=== PATIENT | male | born 1985 | race Caucasian/White ===

== ENCOUNTER 2017-01-21 17:37 | Emergency (ER) | payer MEDICAID, OTHER ==
[~2017-01-21] VITALS: Ht 172.7 cm; Wt 83.0 kg
[2017-01-21 17:39] VITALS: Ht 172.7 cm; Wt 83.0 kg
[2017-01-21] MEDS ORDERED: ACETAMINOPHEN 500 MG TAB PO STA (18:15)
[2017-01-21] MEDS ORDERED: SOD CHLORIDE 0.9% 1,000 ML IV STA (18:15)
--- NOTE | 2017-01-21 19:16 | RADRPT ---
PROCEDURE: US Scrotum. CLINICAL INDICATION: Abdominal Pain, left scrotal pain TECHNIQUE: Multiple sonographic images of the scrotal region were obtained utilizing a linear arra y transducer with grayscale and color-flow and a Doppler imaging. The images were reviewed on a high -resolution PACS workstation. COMPARISON: No prior studies are available for comparison. FINDINGS: Right Testis: Size (cm): 4.0 x 2.0 x 2.9 Echotexture: Homogeneous. Hydrocele/Mass: There is a mild to moderate hydrocele. Vascularity: Normal arterial inflow and venous outflow. Epididymis: No significant abnormalities. Left Testis: Size (cm): 3.0 x 2.6 x 2.9 Echotexture: Small hypoechoic foci are noted eccentrically within the left testicle inferi otto. Hydrocele/Mass: There is a mild to moderate hydrocele. Vascularity: There is asymmetrically increased blood flow to the left testis. Epididymis: The left epididymis is enlarged, heterogeneous, and markedly hypervascular. IMPRESSION: Enlarged, heterogeneous, and markedly hypervascular epididymis as well as heterogeneity and asymmetr ically increased vascularity of the left testicle, as above. Findings suggest left-sided epididymo- orchitis. Mild to moderate bilateral hydroceles. RPTAT: EE Physician Juanito Date Time Electronically viewed and signed by Physician Juanito on 01/21/2017 19:15 /
--- NOTE | 2017-01-21 19:16 | RADRPT ---
PROCEDURE: XR Chest. CLINICAL INDICATION: sob TECHNIQUE: Single frontal view of the chest was obtained. COMPARISON: None. FINDINGS: The heart and mediastinum are within normal limits. The lungs are clear. There is no significant pleural effusion or pneumothorax. IMPRESSION: No acute disease. RPTAT: EE Physician Juanito Date Time Electronically viewed and signed by Stone Rodriguez Physician on 01/21/2017 19:16 RA/
[2017-01-21 19:32] LABS: ADD SCAN DIFF NO
[2017-01-21 19:40] LABS: BASOPHILS % 0.2 % (0.0-2.0); HEMATOCRIT 45.3 % (42.0-52.0); HEMOGLOBIN 14.9 g/dl (14.0-18.0); LYMPHOCYTES % 10.4 % (15.0-51.0); MEAN CORPUSCULAR HEMOGLOBIN 29.4 pg (29.0-33.0); MEAN CORPUSCULAR HGB CONC 32.9 g/dl (32.0-37.0); MEAN CORPUSCULAR VOLUME 89.3 fl (82.0-101.0); MEAN PLATELET VOLUME 9.8 fl (7.4-10.4); MONOCYTE # 0.8 10^3/ul (0.3-0.9); NEUTROPHIL # 7.5 10^3/ul (1.6-7.5); NEUTROPHILS % 80.3 % (39.0-77.0); PLATELET COUNT 279 10^3/UL (140-415); RED BLOOD COUNT 5.07 10^6/ul (4.70-6.10); RED CELL DISTRIBUTION WIDTH 12.4 % (11.5-14.5); WHITE BLOOD COUNT 9.3 10^3/ul (4.8-10.8)
[2017-01-21 20:03] LABS: ALBUMIN 4.4 g/dl (3.3-4.9)
[2017-01-21 20:04] LABS: POTASSIUM 4.3 mmol/L (3.5-5.1)
[2017-01-21 20:06] LABS: BILIRUBIN,INDIRECT 0.2 mg/dl (0-1.1); BILIRUBIN,TOTAL 0.2 mg/dl (0.2-1.3); CREATININE 0.9 mg/dl (0.61-1.24)
[2017-01-21 20:07] LABS: CALCIUM 9.6 mg/dl (8.4-10.2); TOTAL PROTEIN 8.8 g/dl (6.1-8.1)
[2017-01-21 20:09] LABS: ADD UMIC YES; URINE BILIRUBIN (Dip) NEGATIVE (NEGATIVE); URINE BLOOD (Dip) TRACE (NEGATIVE); URINE COLOR YELLOW (YELLOW); URINE GLUCOSE (Dip) NEGATIVE (NEGATIVE); URINE KETONES (Dip) NEGATIVE (NEGATIVE); URINE LEUKOCYTE ESTERASE (Dip) 1+ (NEGATIVE); URINE NITRITE (Dip) NEGATIVE (NEGATIVE); URINE TOTAL PROTEIN (Dip) 1+ (NEGATIVE); URINE UROBILINOGEN (Dip) 1.0 E.U./dL (0.1-1.0)
[2017-01-21 20:25] LABS: SQUAMOUS EPITHELIAL CELL,UR RARE; URINE RBCS 0-2 /HPF (0)
[2017-01-21] MEDS ORDERED: ONDANSETRON 4 MG INJ IV STA (20:41)
[2017-01-21] MEDS ORDERED: CEFTRIAXONE 1 GM/50 ML (PMX) 50 ML IVPB STA (20:41)
[2017-01-21 20:45] VITALS: TEMP 98
[2017-01-21] MEDS ORDERED: morphine 10 MG INJ IV ONE (21:00)
[2017-01-21] MEDS ORDERED: AZITHROMYCIN 250 MG TAB PO STA (21:32)
[2017-01-21] MEDS ORDERED: CIPROFLOXACIN 500 MG TAB PO STA (21:56)
[2017-01-21] MEDS ORDERED: CIPR500T4 PO (21:57)
[2017-01-21] MEDS ORDERED: HYDR-906 PO (21:59)
--- NOTE | 2017-01-21 23:39 | ERD ---
ER Documentation Chief Complaint Date/Time DATE: 01/21/17 TIME: 23:34 Chief Complaint TESTICULAR PAIN X 3 DAYS. ALSO C/O LEON. HPI This is a 31-year-old male presenting to the emergency department complaining of testicular pain and swelling for 1 week. Patient states that the pain was more severe last week, he states the pain went from 10/10 to 5/10, however swelling has remained constant. Patient states that he has been having chills and fevers today. Patient admits to being sexually active with condoms with one partner. He denies any penile lesions or discharge. He states that he has not taken any medications today. ROS All systems reviewed and are negative except as per history of present illness. Medications Home Meds Active Scripts Hydrocodone/Acetaminophen ([place] 5-325 Tablet) 1 Each Tablet, 1 TAB PO Q6H Y for PAIN, #20 TAB Prov:HYUN FORTE PA-C 01/21/17 Ciprofloxacin Hcl* (Ciprofloxacin Hcl*) 500 Mg Tablet, 500 MG PO BID for 10 Days , TAB Prov:HYUN FORTE PA-C 01/21/17 Allergies Allergies: Coded Allergies: No Known Allergy (Unverified , 01/21/17) PMhx/Soc Medical and Surgical Hx: pt denies Medical Hx, pt denies Surgical Hx History of Surgery: No Anesthesia Reaction: No Hx Neurological Disorder: No Hx Respiratory Disorders: No Hx Cardiac Disorders: No Hx Psychiatric Problems: No Hx Miscellaneous Medical Probl: No Hx Alcohol Use: No Hx Substance Use: No Hx Tobacco Use: No Smoking Status: Never smoker Physical Exam Vitals Vital Signs Date Time Temp Pulse Resp B/P Pulse Ox O2 Delivery O2 Flow Rate FiO2 01/21/17 20:45 98.0 01/21/17 17:39 101.2 127 20 134/76 97 Physical Exam General: well-developed/well-nourished, in no apparent distress, non-toxic appearing HENT: NC/AT, bilateral tympanic membrane is normal with good cone of light, nares patent, oropharynx clear without exudates Eyes: Conjunctiva normal, PERRLA, EOMI Neck: Supple, no lymphadenopathy Pulm: CTA bilaterally, no rales, rhonchi, or wheezing heard CV: Normal S1S2, RRR, good capillary refill GI: Soft, non-distended, normal bowel sounds, non-tender : no penile discharge or lesions, Testicular swelling, left greater than right with warmth Back: No midline tenderness, no masses, No CVAT Ext: No clubbing, cyanosis, or edema Neuro: Alert and Orientated, CN II-IIX intact, gait normal Skin: Intact, normal turgor Psych: Normal mood and mentation Result Diagram: 01/21/17191201/21/171912 Results 24 hrs Laboratory Tests Test 01/21/17 19:13 01/21/17 20:15 White Blood Count 9.310^3/ul Red Blood Count 5.0710^6/ul Hemoglobin 14.9g/dl Hematocrit 45.3% Mean Corpuscular Volume 89.3fl Mean Corpuscular Hemoglobin 29.4pg Mean Corpuscular Hemoglobin Concent 32.9g/dl Red Cell Distribution Width 12.4% Platelet Count 24084^3/UL Mean Platelet Volume 9.8fl Neutrophils % 80.3% Lymphocytes % 10.4% Monocytes % 8.0% Eosinophils % 0.0% Basophils % 0.2% Nucleated Red Blood Cells % 0.0/100WBC Neutrophils # 7.510^3/ul Lymphocytes # 1.010^3/ul Monocytes # 0.810^3/ul Eosinophils # 0.010^3/ul Basophils # 0.010^3/ul Nucleated Red Blood Cells # 0.010^3/ul Urine Color YELLOW Urine Clarity CLEAR Urine pH 8.0 Urine Specific [place] 1.015 Urine Ketones NEGATIVE Urine Nitrite NEGATIVE Urine Bilirubin NEGATIVE Urine Urobilinogen 1.0 E.U./dL Urine Leukocyte Esterase 1+ Urine Microscopic RBC 0-2/HPF Urine Microscopic WBC 5-10/HPF Urine Squamous Epithelial Cells RARE Urine Hemoglobin TRACE Urine Glucose NEGATIVE% Urine Total Protein 1+ Sodium Level 141mmol/L Potassium Level 4.3mmol/L Chloride Level 100mmol/L Carbon Dioxide Level 26mmol/L Anion Gap 19 Blood Urea Nitrogen 12mg/dl Creatinine 0.90mg/dl Glucose Level 125mg/dl Calcium Level 9.6mg/dl Total Bilirubin 0.2mg/dl Direct Bilirubin 0.00mg/dl Indirect Bilirubin 0.2mg/dl Aspartate Amino Transf (AST/SGOT) 28IU/L Alanine Aminotransferase (ALT/SGPT) 29IU/L Alkaline Phosphatase 105IU/L Total Protein 8.8g/dl Albumin 4.4g/dl Globulin 4.40g/dl Albumin/Globulin Ratio 1.00 Lactic Acid Level 1.2mmol/L Current Medications Medications (Trade) Dose Ordered Sig/Sivlana Route PRN Reason Start Time Stop Time Status Last Admin Dose Admin Sodium Chloride (NS) 1,000 ml @ 1,000 mls/hr Q1H STAT IV 01/21/17 18:15 01/21/17 19:14 DC 01/21/17 18:15 Acetaminophen 1000 mg 1,000 mg ONCE STAT PO 01/21/17 18:15 01/21/17 18:18 DC 01/21/17 19:31 Ceftriaxone Sodium (Rocephin) 50 ml @ 100 mls/hr ONCE STAT IVPB 01/21/17 20:41 01/21/17 21:10 DC 01/21/17 20:52 Morphine Sulfate (morphine) 6 mg ONCE ONCE IV 01/21/17 21:00 01/21/17 21:01 DC 01/21/17 20:53 Ondansetron HCl (Zofran Inj) 4 mg ONCE STAT IV 01/21/17 20:41 01/21/17 20:43 DC 01/21/17 20:52 Azithromycin (Zithromax) 1,000 mg ONCE STAT PO 01/21/17 21:32 01/21/17 21:34 DC 01/21/17 21:50 Ciprofloxacin (Cipro) 500 mg ONCE STAT PO 01/21/17 21:56 01/21/17 21:57 DC 01/21/17 22:04 Procedures/MDM This is a 31-year-old male presenting to the emergency department with testicular pain and swelling for the past week due to left-sided epididymo- orchitis. Initially, patient was febrile with tachycardia. IV access was established. Patient was given 1 L fluids, Tylenol morphine and Zofran. Patient pain and vitals have stabilized. A testicular ultrasound was done and showed left-sided epididymo-orchitis. Lab work was drawn. CBC did not show any evidence of leukocytosis or anemia. CMP did not show any evidence of renal, liver, or electrolyte abnormalities. Lipase was normal. Lactate within normal limits. UA showed leukocyte esterase, urine culture and chronically culture was sent out. In the ED patient was given 1 g ceftriaxone and 1000 mg of azithromycin. I have consulted the urologist pet adoption counselor Dr. Benitez Salas regarding this patient and she suggested patient to be placed on Cipro for the next 7 days, NSAIDs, scrotal elevation and ice until he is able to follow-up with a urologist outpatient on Thursday. Patient is suitable for being discharged home with strict precautions to return to the emergency room for any worsening signs or symptoms. Patient understands and agrees with this plan Prescriptions given: cipro 500mg BID x 7-10 days, ibuprofen 800mg Q6 hours Testicular ultrasound: Enlarged, heterogeneous, and markedly hypervascular epididymis as well as heterogeneity and asymmetrically increased vascularity of the left testicle, as above. Findings suggest left-sided epididymo-orchitis. Mild to moderate bilateral hydroceles. Departure Diagnosis: Primary Impression: Epididymo-orchitis, acute Condition: Fair Patient Instructions: Treating Epididymitis and Orchitis, What Are Epididymitis and Orchitis?, Epididymitis Referrals: BENITEZ SALAS MD [facility] YOU HAVE RECEIVED A MEDICAL SCREENING EXAM AND THE RESULTS INDICATE THAT YOU DO NOT HAVE A CONDITION THAT REQUIRES URGENT TREATMENT IN THE EMERGENCY DEPARTMENT. FURTHER EVALUATION AND TREATMENT OF YOUR CONDITION CAN WAIT UNTIL YOU ARE SEEN IN YOUR DOCTORS OFFICE WITHIN THE NEXT 1-2 DAYS. IT IS YOUR RESPONSIBILITY TO MAKE AN APPOINTMENT FOR FOLOW-UP CARE. IF YOU HAVE A PRIMARY DOCTOR --you should call your primary doctor and schedule an appointment IF YOU DO NOT HAVE A PRIMARY DOCTOR YOU CAN CALL OUR PHYSICIAN REFERRAL HOTLINE AT IF YOU CAN NOT AFFORD TO SEE A PHYSICIAN YOU CAN CHOSE FROM THE FOLLOWING [facility] CL[facility] [address] [facility]. [facility] [address] [facility]. [facility] [address] [facility]. [facility] [address] [facility]. [facility] [address] [facility]. [facility]. [address] Additional Instructions: FOLLOW UP WITH YOUR PRIMARY CARE PHYSICIAN TOMORROW.Return to this facility if you are not improving as expected. SPECIALIST: YOU HAVE A MEDICAL CONDITION WHICH REQUIRES YOU TO SEE A SPECIALIST WITHIN THE NEXT 1-2 DAYS. PLEASE FOLLOW UP WITH YOUR PRIMARY PHYSICIAN FOR REFFERAL.IF YOU DO NOT HAVE A PRIMARY CARE PHYSICIAN AND/OR YOU CAN NOT AFFORD TO SEE A PHYSICIAN THE FOLLOWING RESOURCES HAVE BEEN SUPPLIED TO YOU. IT IS YOUR RESPONSIBILITY TO BE SEEN BY THE SPECIALIST Take all medicines as directed. Return to this facility if you are not improving as expected. HYUN FORTE PA-C January 21, 2017 23:39
== END 2017-01-21 22:49 | disposition home or self-care (01) ==
LOC: FTE 17:37
DX: N45.3 Epididymo-orchitis (principal); R06.02 Shortness of breath
CPT/HCPCS: 36415; 71010; 76870; 80053; 81001; 83605; 85025; 87040; 87086; 87591; 96374; 96375; J0696; J2270; J2405; J7030; Z7502; Z7610; 81003

== ENCOUNTER 2017-08-27 17:04 | Emergency (ER) | END 2017-08-27 20:10 | disposition home or self-care (01) ==

== ENCOUNTER 2017-08-30 17:59 | Emergency (ER) | payer OTHER ==
[~2017-08-30] VITALS: Ht 172.7 cm; Wt 80.3 kg
[~2017-08-30 17:59] MED LIST: ACET325T33 PO; AZIT250T94 PO; CIPR500T4 PO; HYDR-906 PO; IBUP400T22 PO
[2017-08-30 18:00] VITALS: Ht 172.7 cm; Wt 80.3 kg
[2017-08-30] MEDS ORDERED: SOD CHLORIDE 0.9% 1,000 ML IV STA (18:38)
[2017-08-30] MEDS ORDERED: CEFTRIAXONE 1 GM/50 ML (PMX) 50 ML IVPB STA (18:38)
--- NOTE | 2017-08-30 19:10 | RADRPT ---
PROCEDURE: CHEST X-RAY CLINICAL INDICATION: Shortness of breath TECHNIQUE: One-view COMPARISON: 08/27/2017 FINDINGS: Heart size and pulmonary vascularity appears unremarkable. Large lingular and lower lobe infiltrate is seen without improvement. Small left pleural effusion cannot be excluded. No pneumothorax noted. IMPRESSION: No change lingular and left lower lobe infiltrate RPTAT: AAOO Physician Kay Date Time Electronically viewed and signed by Sherin Pena Physician on 08/30/2017 19:09 MB/
[2017-08-30 19:21] LABS: BASOPHIL # 0.1 10^3/ul (0.0-0.1); BASOPHILS % 0.8 % (0.0-2.0); EOSINOPHILS # 0.1 10^3/ul (0.0-0.5); EOSINOPHILS % 0.5 % (0.0-7.0); HEMOGLOBIN 13.8 g/dl (14.0-18.0); LYMPHOCYTES # 1.6 10^3/ul (0.8-2.9); MEAN CORPUSCULAR HEMOGLOBIN 28.3 pg (29.0-33.0); MEAN CORPUSCULAR HGB CONC 32.1 g/dl (32.0-37.0); MEAN CORPUSCULAR VOLUME 88.3 fl (82.0-101.0); MONOCYTE # 1.1 10^3/ul (0.3-0.9); MONOCYTES % 9.3 % (0.0-11.0); NEUTROPHIL # 9.1 10^3/ul (1.6-7.5); NEUTROPHILS % 75.2 % (39.0-77.0); PLATELET COUNT 458 10^3/UL (140-415); RED BLOOD COUNT 4.87 10^6/ul (4.70-6.10); RED CELL DISTRIBUTION WIDTH 12.2 % (11.5-14.5); WHITE BLOOD COUNT 12.1 10^3/ul (4.8-10.8)
--- NOTE | 2017-08-30 19:29 | ERD ---
ER Documentation Chief Complaint Chief Complaint rash on neck sob and cough HPI This is a 31-year-old male presenting to emergency department for cough, shortness of breath and rash to left neck. Patient was seen here 3 days ago and was diagnosed with pneumonia. Patient was given Rocephin 1 g IM while in the ED 3 days ago and was given prescription for azithromycin. Patient states he did not start on the medication prescribed. Patient continues to have dry, nonproductive cough and intermittent shortness of breath. Patient states for the last 3 days he noticed a nonpruritic and nonpainful rash to the left side of his neck. Patient states he noticed it in the mirror. Rash is spreading. Has lesions to left forearm and head. Patient states he did not have varicella as a child. Patient denies fevers or chills. No wheezing. ROS All systems reviewed and are negative except as per history of present illness. Medications Home Meds Active Scripts Azithromycin* (Zithromax*) 250 Mg Tablet, 250 MG PO .ZPACK DIRECTED, #6 TAB TAKE 500 MG (2 TABS) THE FIRST DAY THEN 250 MG (1 TAB) DAYS 2-5 Prov:JORDANA SALDAÑA NP 08/30/17 Acyclovir* (Zovirax*) 800 Mg Tablet, 800 MG PO 5 TIMES DAILY for 7 Days, TAB Prov:JORDANA SALDAÑA NP 08/30/17 Acetaminophen* (Tylenol*) 325 Mg Tablet, 1 TAB PO Q6 Y for PAIN AND OR ELEVATED TEMP, #20 TAB Prov:JORDANA SALDAÑA NP 08/27/17 Ibuprofen* (Motrin*) 400 Mg Tab, 400 MG PO Q6, #30 TAB Prov:JORDANA SALDAÑA NP 08/27/17 Azithromycin* (Zithromax*) 250 Mg Tablet, 250 MG PO .ZPACK DIRECTED, #6 TAB TAKE 500 MG (2 TABS) THE FIRST DAY THEN 250 MG (1 TAB) DAYS 2-5 Prov:JORDANA SALDAÑA NP 08/27/17 Hydrocodone/Acetaminophen ([place] 5-325 Tablet) 1 Each Tablet, 1 TAB PO Q6H Y for PAIN, #20 TAB Prov:HYUN FORTE PA-C 01/21/17 Ciprofloxacin Hcl* (Ciprofloxacin Hcl*) 500 Mg Tablet, 500 MG PO BID for 10 Days , TAB Prov:ANITHAHYUN Conti Neil TRUJILLO 01/21/17 Allergies Allergies: Coded Allergies: No Known Allergy (Unverified , 08/27/17) PMhx/Soc Medical and Surgical Hx: pt denies Medical Hx, pt denies Surgical Hx History of Surgery: No Anesthesia Reaction: No Hx Neurological Disorder: No Hx Respiratory Disorders: No Hx Cardiac Disorders: No Hx Psychiatric Problems: No Hx Miscellaneous Medical Probl: No Hx Alcohol Use: Yes Hx Substance Use: Yes (marijuana) Hx Tobacco Use: Yes Smoking Status: Current some day smoker Physical Exam Vitals Vital Signs Date Time Temp Pulse Resp B/P Pulse Ox O2 Delivery O2 Flow Rate FiO2 08/30/17 22:36 98.3 97 18 109/70 97 Room Air 08/30/17 21:40 101.7 08/30/17 20:50 102.9 119 31 132/74 95 Room Air 08/30/17 19:45 116 26 94 21 08/30/17 18:00 99.0 119 18 128/80 95 Physical Exam Const: NAD, alert Head: Atraumatic Eyes: Normal Conjunctiva ENT: Normal External Ears, Nose and Mouth. Neck: Full range of motion..~ No meningismus. Resp: Diminished to auscultation bilaterally. Labored breathing. No stridor or wheezing. Patient is talking in complete sentences. Cardio: Regular rate and rhythm, no murmurs Abd: Soft, non tender, non distended. Normal bowel sounds Skin: Erythematous vesicular rash to left side of neck. There are a few erythematous vesicular lesions to left scalp and left forearm. No drainage or crusting. No warmth. Back: No midline or flank tenderness Ext: No cyanosis, or edema Neur: Awake and alert Psych: Normal Mood and Affect Result Diagram: 08/30/17190908/30/171909 Results 24 hrs Laboratory Tests Test 08/30/17 18:55 08/30/17 19:05 08/30/17 19:10 08/30/17 21:10 Lactic Acid Level 1.3mmol/L 1.0mmol/L Urine Color YELLOW Urine Clarity CLEAR Urine pH 7.0 Urine Specific [place] 1.020 Urine Ketones NEGATIVEmg/dL Urine Nitrite NEGATIVEmg/dL Urine Bilirubin NEGATIVEmg/dL Urine Urobilinogen 1+mg/dL Urine Leukocyte Esterase NEGATIVELeu/ul Urine Microscopic RBC 41/HPF Urine Microscopic WBC 4/HPF Urine Bacteria FEW/HPF Urine Mucus MODERATE/HPF Urine Hemoglobin 2+mg/dL Urine Glucose NEGATIVEmg/dL Urine Total Protein 1+mg/dl White Blood Count 12.110^3/ul Red Blood Count 4.8710^6/ul Hemoglobin 13.8g/dl Hematocrit 43.0% Mean Corpuscular Volume 88.3fl Mean Corpuscular Hemoglobin 28.3pg Mean Corpuscular Hemoglobin Concent 32.1g/dl Red Cell Distribution Width 12.2% Platelet Count 34763^3/UL Mean Platelet Volume 9.0fl Neutrophils % 75.2% Lymphocytes % 13.0% Monocytes % 9.3% Eosinophils % 0.5% Basophils % 0.8% Nucleated Red Blood Cells % 0.0/100WBC Neutrophils # 9.110^3/ul Lymphocytes # 1.610^3/ul Monocytes # 1.110^3/ul Eosinophils # 0.110^3/ul Basophils # 0.110^3/ul Nucleated Red Blood Cells # 0.010^3/ul Prothrombin Time 15.3Sec Prothrombin Time Ratio 1.2 INR International Normalized Ratio 1.19 Activated Partial Thromboplast Time 71.4Sec Sodium Level 138mmol/L Potassium Level 4.1mmol/L Chloride Level 99mmol/L Carbon Dioxide Level 27mmol/L Anion Gap 16 Blood Urea Nitrogen 9mg/dl Creatinine 1.06mg/dl Glucose Level 118mg/dl Calcium Level 9.2mg/dl Total Bilirubin 0.3mg/dl Direct Bilirubin 0.00mg/dl Indirect Bilirubin 0.3mg/dl Aspartate Amino Transf (AST/SGOT) 50IU/L Alanine Aminotransferase (ALT/SGPT) 62IU/L Alkaline Phosphatase 174IU/L Troponin I 0.018ng/ml Total Protein 8.7g/dl Albumin 3.7g/dl Globulin 5.00g/dl Albumin/Globulin Ratio 0.74 Current Medications Medications (Trade) Dose Ordered Sig/Silvana Route PRN Reason Start Time Stop Time Status Last Admin Dose Admin Sodium Chloride 1,000 ml @ 1,000 mls/hr Q1H STAT IV 08/30/17 18:38 08/30/17 19:37 DC 08/30/17 19:00 Ceftriaxone Sodium (Rocephin) 50 ml @ 100 mls/hr ONCE STAT IVPB 08/30/17 18:38 08/30/17 19:07 DC 08/30/17 19:00 Levalbuterol (Xopenex Neb) 1.25 mg ONCE ONCE HHN 08/30/17 19:30 08/30/17 19:31 DC 08/30/17 19:45 Acetaminophen (Tylenol Tab) 1,000 mg ONCE STAT PO 08/30/17 20:53 08/30/17 20:59 DC 08/30/17 21:00 Acetaminophen (Tylenol Tab) 1,000 mg ONCE STAT PO 08/30/17 20:54 08/30/17 20:58 DC Acetaminophen (Tylenol Tab) 500 mg STK-MED ONCE .ROUTE 08/30/17 20:56 08/30/17 20:57 DC Procedures/MDM Patient: LOTUS SNOWDEN : 1985 Age: 31 Sex: M MR #: [id number] DOS: 08/30/17 1838 Ordering MD: JORDANA MURILLO NP Location: [facility] Room/Bed: PROCEDURE: CHEST X-RAY CLINICAL INDICATION: Shortness of breath TECHNIQUE: One-view COMPARISON: 08/27/2017 FINDINGS: Heart size and pulmonary vascularity appears unremarkable. Large lingular and lower lobe infiltrate is seen without improvement. Small left pleural effusion cannot be excluded. No pneumothorax noted. IMPRESSION: No change lingular and left lower lobe infiltrate MDM: This is a 31-year-old male presenting to the emergency department for cough , shortness of breath and rash 3 days. Patient was seen here previously 3 days ago and was diagnosed with pneumonia. Patient was treated in the ER and then sent home with prescription for azithromycin. Patient states he did not start this medication and has been only taking ibuprofen at home. Dr. Alex Kc consulted regarding this patient. Dr. Stinson also examined patient. Labs, urine and repeat chest x-ray ordered. IV access obtained and patient given 1 g Rocephin and 1 L IV fluid bolus of normal saline. Patient given a nebulizer treatment of Xopenex. CBC shows no significant anemia or infection. WBC is downtrending. CXR shows no change regular and left lower lobe infiltrate. Lactic acid is 1.3 and repeat lactic acid is 1.0. PT 15.3, INR 1.19 and PTT 71.4. Urine is negative for infection. Upon reassessment of patient, states he is feeling much better. Discussed case with Dr. Alex Kc and we agree that patient is appropriate for outpatient management. Patient diagnosis is pneumonia and rash. Patient likely has varicella. Patient is appropriate for outpatient management will be given prescription for azithromycin and acyclovir. Return to ED for any high fever, chest pain, difficulty breathing, shortness breath, wheezing, vomiting, diarrhea, abdominal pain or any new or worsening symptoms. Patient verbalizes understanding. All questions answered at discharge. Disclaimer: Inadvertent spelling and grammatical errors are likely due to EHR/ dictation software use and do not reflect on the overall quality of patient care. Also, please note that the electronic time recorded on this note does not necessarily reflect the actual time of the patient encounter. Departure Diagnosis: Primary Impression: Pneumonia Aspiration pneumonia type: unspecified Laterality: left Lung location: lower lobe of lung Additional Impression: Rash and other nonspecific skin eruption Condition: Stable JORDANA SALDAÑA NP Aug 30, 2017 19:29
[2017-08-30] MEDS ORDERED: LEVALBUTEROL (NEB) 1.25 MG/0.5 ML AMP HHN ONE (19:30)
[2017-08-30 19:37] LABS: ADD UMIC YES; UR ASCORBIC ACID NEGATIVE (NEGATIVE); UR BACTERIA FEW /HPF (NONE SEEN); UR BILIRUBIN (Dip) NEGATIVE (NEGATIVE); UR BLOOD (Dip) 2+ mg/dL (NEGATIVE); UR CLARITY CLEAR (CLEAR); UR COLOR YELLOW (YELLOW); UR GLUCOSE (Dip) NEGATIVE (NEGATIVE); UR KETONES (Dip) NEGATIVE (NEGATIVE); UR LEUKOCYTE ESTERASE (Dip) NEGATIVE Leu/ul (NEGATIVE); UR MUCUS MODERATE /HPF (NONE SEEN); UR NITRITE (Dip) NEGATIVE (NEGATIVE); UR RBC 41 /HPF (0-5); UR TOTAL PROTEIN (Dip) 1+ mg/dl (NEGATIVE); UR UROBILINOGEN (Dip) 1+ mg/dL (NEGATIVE)
[2017-08-30 19:41] LABS: INR 1.19; PROTIME 15.3 Sec (11.9-14.9); PT RATIO 1.2
[2017-08-30 19:51] LABS: ALBUMIN 3.7 g/dl (3.3-4.9); ALBUMIN/GLOBULIN RATIO 0.74; BILIRUBIN,INDIRECT 0.3 mg/dl (0-1.1); BILIRUBIN,TOTAL 0.3 mg/dl (0.2-1.3); CALCIUM 9.2 mg/dl (8.4-10.2); CREATININE 1.06 mg/dl (0.61-1.24); POTASSIUM 4.1 mmol/L (3.5-5.1); TOTAL PROTEIN 8.7 g/dl (6.1-8.1)
[2017-08-30] MEDS ORDERED: AZIT250T94 PO (19:54)
[2017-08-30] MEDS ORDERED: ACYC800T57 PO (19:54)
[2017-08-30 19:59] LABS: PARTIAL THROMBOPLASTIN TIME 71.4 Sec (25.0-35.0)
[2017-08-30 20:02] LABS: TROPONIN-I 0.018 ng/ml (0.00-0.12)
[2017-08-30] MEDS ORDERED: ACETAMINOPHEN 500 MG TAB PO STA ×2 (20:53→20:54)
[2017-08-30] MEDS ORDERED: ACETAMINOPHEN 500 MG TAB ONE (20:56)
[2017-08-30 22:36] VITALS: BP 109/70; PULSE 97; RESP 18; TEMP 98.3
== END 2017-08-30 22:43 | disposition home or self-care (01) ==
LOC: FTE 17:59
DX: J18.9 Pneumonia, unspecified organism (principal); R21 Rash and other nonspecific skin eruption; F17.210 Nicotine dependence, cigarettes, uncomplicated
CPT/HCPCS: 71010; 80053; 81001; 83605; 84484; 85025; 85610; 85730; 87040; 87086; 94664; J0696; J7030; Z7610; 36415; 93005; 96374